=== PATIENT | female | born 1975 | race Caucasian/White ===

== ENCOUNTER 2021-07-14 11:53 | Emergency (ER) | payer MEDICAID ==
[2021-07-14] MEDS ORDERED: Morphine 4 MG/ML VIAL ONE (12:40)
[2021-07-14] MEDS ORDERED: Propofol 1,000 MG/100 ML VIAL IV ONE (13:17)
[2021-07-14] MEDS ORDERED: Fentanyl 100 MCG/2 ML VIAL ONE ×2 (13:19→14:07)
== END 2021-07-14 14:30 | disposition short-term general hospital (02) ==
LOC: BURERS 11:53
DX: S43.014A Anterior dislocation of right humerus, initial encounter (principal); W01.0XXA Fall on same level from slipping, tripping and stumbling without subsequent striking against object, initial encounter
CPT/HCPCS: 94760; 96372; 96374; 96376; 99152; J2270; J2704; J3010

== ENCOUNTER 2025-03-19 15:51 | Emergency (ER) | payer OTHER, SELFPAY ==
[2025-03-19] MEDS ORDERED: Ketorolac Tromethamine 30 MG (1 mL) VIAL ONE (17:21)
[2025-03-19] MEDS ORDERED: diphenhydrAMINE 50 MG/ML VIAL ONE (17:25)
[2025-03-19] MEDS ORDERED: Famotidine/PF 20 mg/2ml Vial ONE (17:27)
== END 2025-03-19 18:46 | disposition home or self-care (01) ==
LOC: BURERS 15:51
DX: M25.511 Pain in right shoulder (principal); W19.XXXA Unspecified fall, initial encounter
CPT/HCPCS: 72128; 72131; 96372; 96374; 96375; J0169; J1200; J1885; J2250; J2270; J2919